=== PATIENT | male | born 1970 | race Two or more races ===

== ENCOUNTER → 2019-08-25 | Outpatient (CLI) | payer OTHER ==
[~2019-08-25] MED LIST: REGADENOSON 0.4 MG/5 ML SYRINGE ONE
== END | disposition home or self-care (01) ==
LOC: CFH 06:36
PROVIDERS: ATTEND Physician Assistant Medical
DX: I34.0 Nonrheumatic mitral (valve) insufficiency (principal); I25.89 Other forms of chronic ischemic heart disease; I48.91 Unspecified atrial fibrillation; Q21.1 Atrial septal defect
CPT/HCPCS: 78452; 93017; 93306; A9502; J2785